=== PATIENT | male | born 1995 | race Caucasian/White ===

== ENCOUNTER 2024-02-12 16:14 | Emergency (ER) | payer SELFPAY ==
[~2024-02-12] VITALS: Ht 188 cm; Wt 135.9 kg
[2024-02-12 16:43] VITALS: BP 152/94; PULSE 94; RESP 16; TEMP 98.3
[2024-02-12] MEDS: DiphenhydrAMINE HCL 25 MG CAPSULE PO ONE (19:20)
[2024-02-12] MEDS: PredniSONE 20 MG TABLET PO ONE (19:20)
[2024-02-12] MEDS ORDERED: DIPH25CA53 PO (19:26)
[2024-02-12] MEDS ORDERED: PRED-554 PO (19:26)
== END 2024-02-12 19:43 | disposition home or self-care (01) ==
LOC: EMS 16:16
DX: T78.40XA Allergy, unspecified, initial encounter (principal); X58.XXXA Exposure to other specified factors, initial encounter
CPT/HCPCS: 99283; J7512